=== PATIENT | female | born 1985 | race Caucasian/White ===

== ENCOUNTER → 2018-10-21 10:38 | Outpatient (CLI) | payer OTHER, SELFPAY ==
[2018-10-27 08:21] LABS: HPV HC, High Risk Positive (Negative)
[2018-10-27 08:22] LABS: Chlamydia By Nucleic Acid AMP Negative; Gonococcus By Nucleic Acid AMP Negative
== END ==
PROVIDERS: Family Provider Family Medicine; PCP Family Medicine; Referring Provider Family Medicine; Visit Provider Family Medicine
DX: Z87.42 Personal history of other diseases of the female genital tract (principal)
CPT/HCPCS: 87491; 87591; 87623; 87624; 88175; G0145

== ENCOUNTER → 2019-02-02 | Outpatient (CLI) | payer BC, SELFPAY ==
--- NOTE | 2019-02-02 | IMM_PTH ---
PATIENT: INA THACKER LOC: [facility] U#:[id number] AGE/SX: 34/F ROOM: RE02/02/[address]: Dr. Lanette Garza MD : 1985 BED: DIS: 02/02/2019 SPEC #: [id number] RECD: 02/03/19 13:36 STATUS: CARSON RETootie #: [id number] CRISTHIAN: 02/02/19 00:[address]: Lanette Garza DEPT: IMMUNOHISTOCHEMISTRY RECD BY: Rosa Templeton ENTERED: 02/03/19 13:37 SP TYPE: IMMUNO OTHR DR: Dr. Patrick Garcia MD Tissues: B - Uterine cervix, NOS Procedures: P16 (add) KI-67 (initial) PHYSICIAN & [place] [id number] SPECIMEN INFORMATION: Tissue Source: B - Cervical biopsy Clinical Info: TAMMY III Specimen Number: [id number] CPT code: 31666, 39802 METHODOLOGY: Deparaffinized sections of prefer/formalin-fixed tissue or PAP/DQ stained slides are incubated with monoclonal/polyclonal antibodies/oligonucleotide probes. Localization is made via biotin free immunoperoxidase method. Appropriate controls are performed and reacted as expected. Results on target cell population are indicated in the following table: RESULTS: ANTIBODY / CLONE RESULT Block B P16 (E6H4) positive Ki-67 (30-9) strongly positive (>90% of dysplastic squamous cells) These tests were developed and their performance characteristics determined by [facility]. They may not have been cleared or approved by the U.S. Food and Drug Administration. The FDA has determined that such clearance or approval is not necessary. INTERPRETATION: B. Cervical biopsy: Moderately to severe squamous dysplasia. CE:yumi 02/03/19
--- NOTE | 2019-02-02 | CER_PTH ---
PATIENT: INA THACKER [facility]#:[id number] AGE/SX: 34/F ROOM: RE02/02/[address]: Dr. Lanette Garza MD : 1985 BED: DIS: 02/02/2019 SPEC #: [id number] RECD: 02/02/19 12:38 STATUS: CARSON GARLAND #: [id number] CRISTHIAN: 02/02/19 00:[address]: Lanette Garza DEPT: SURGICAL PATHOLOGY RECD BY: J Luis Patel ENTERED: 02/02/19 13:29 SP TYPE: CERV OTHR DR: Dr. Patrick Garcia MD Tissues: A - Endocervical B - Uterine cervix, NOS Procedures: Surgery Specimen Level IV HEADER OPERATION: Colposcopy PRE-OP DIAGNOSIS: TAMMY III TISSUE SUBMITTED: A - ECC, B - Cervical MICROSCOPIC DIAGNOSIS A. Endocervical curettage: Scant endocervical epithelium present. No metaplastic or dysplastic squamous epithelium found. B. Cervical biopsy: Moderate to severe squamous dysplasia (TAMMY II-III) with endocervical gland neck extension. 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 CE:yumi 02/03/19 COMMENT B. Results from immunohistochemistry ([id number]) for surrogate HPV marker (p16) and Ki 67 will be reported separately. Case has been reviewed in consultation with Dr. Rogers who concurs with the above diagnosis. IDC:SANCHEZ MICROSCOPIC DESCRIPTION Slides are reviewed. GROSS DESCRIPTION A - Received in fixative is one container labeled with the patient's name and designated ECC. The specimen consists of scant fragments of mucoid tissue, entirely submitted for cell block preparation. B - Received in fixative is one container labeled with the patient's name and designated cervical biopsy. The specimen consists of multiple irregular fragments of light lui soft tissue that in aggregate measure 0.4 x 0.3 x 0.1 cm. The specimen is totally submitted in one cassette. / SANCHEZ:yumi 02/02/19 TC: CPT:
[2019-02-02 11:47] VITALS: BMI 19.5
== END | disposition home or self-care (01) ==
LOC: LABSPEC 13:17
PROVIDERS: Family Provider Family Medicine; PCP Family Medicine; Referring Provider Obstetrics & Gynecology; Visit Provider Obstetrics & Gynecology
DX: D06.9 Carcinoma in situ of cervix, unspecified (principal)
CPT/HCPCS: 88305; 88341; 88342

== ENCOUNTER → 2019-03-22 | Outpatient (CLI) | payer OTHER, SELFPAY ==
[2019-02-02 11:47] VITALS: BMI 19.5
[2019-03-11 11:13] VITALS: BMI 19.5
--- NOTE | 2019-03-13 06:08 | PCM.HPOB.BLA ---
- Problem List (1) TAMMY III (cervical intraepithelial neoplasia grade III) with severe dysplasia Status: Acute Comment: plan LEEP (2) IUD contraception Status: Acute Comment: plan IUD removal and reinsertion History and Physical Date of Admission: 03/17/19 Intake Vital Signs 03/11/19 Body Mass Index (BMI) 19.5 03/11/19 Height 5 ft 9 in 03/11/19 Weight: 129 lb 03/11/19 Body Mass Index (BMI) 19.0 03/11/19 Blood Pressure 100/72 Intake Visit Reasons: pre op LEEP/IUD Chief Complaint: pre op Gear Technician Required: No Is patient in pain?: No Allergies amoxicillin Allergy (Mild, Verified 03/11/19 10:58) other erythromycin base Allergy (Mild, Verified 03/11/19 10:58) other acetaminophen [From Tylenol-Codeine #3] Allergy (Verified 03/11/19 10:58) Rash codeine [From Tylenol-Codeine #3] Allergy (Verified 03/11/19 10:58) Rash Medications bupropion HCl XL 150 mg 24 hr tablet, extended release 150 mg PO DAILY 02/02/19 [History Confirmed 03/10/19] cetirizine 10 mg tablet 10 mg PO DAILY 02/02/19 [History Confirmed 03/10/19] Is last menstrual period known: No Post menopausal: No Patient : No : [facility] Medical History Anxiety (Acute) Depression (Acute) Surgical History History of laparoscopy (Acute) Family History Grandmother Heart disease Breast cancer Grandfather Heart disease Social History Smoking Status: Current some day smoker Smokeless tobacco user: dissolvable tobacco alcohol intake: current details: social substance use type: does not use caffeine: Yes what type of physical activity do you participate in: walking seatbelt use: always do you feel safe at home: Yes additional social history: Pranay Coffman LPN 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 she needs her IUD replaced and she has TAMMY III Pregancy History 1 Elective abortions Hx Para 1 Spontaneous abortions Hx # Term Pregnancies Ectopic pregnancies Hx # Pregnancies Multiple births # of living children Past Pregnancies Del. Date Name GA/Weeks Outcome Route Bth Weight [facility] Kota live - full term Raj ROS Const Constitutional: Denies fatigue, fever(s), headache(s), increased appetite, poor appetite, weight gain or weight loss Cardio Card: Denies chest pain Resp Resp: Denies cough or dyspnea GI GI: Reports as per HPI; denies abdominal pain, constipation, nausea or vomiting : Reports as per HPI; denies difficulty urinating, painful urination, nipple discharge, urinary frequency, urinary incontinence, urinary hesitancy, urinary urgency, vaginal discharge, vaginal dryness, vaginal odor or vaginal itching Skin Skin/Breast: Denies change in hair, breast lump, breast pain, breast skin changes or nipple discharge Exam Const General: cooperative, healthy appearing, comfortable, no acute distress, well developed Nutritional Appearance: average body habitus Orientation: alert HENMD Head: normal to inspection, normocephalic Neck Neck: normal visual inspection, trachea midline Thyroid: thyroid normal Resp Effort & Inspection: normal respiratory effort GI Inspection: normal to inspection, non-distended Palpation: soft, no hepatosplenomegaly General: bladder normal to palpation External Female Exam: normal external appearance, normal appearance of the urethra Urethra: normal appearance of the urethra, normal palpation, no discharge Speculum Exam - Vagina: normal appearance of the vagina, normal vaginal discharge Speculum Exam - Cervix: normal appearance of the cervix, nontender Bimanual Exam- Vagina & Uterus: normal bimanual exam, uterine size normal, bladder normal to palpation, uterine shape normal, No cervical tenderness, uterine mobility normal, uterine consistency normal, normal cervical palpation, uterus non-tender Bimanual Exam- Adnexa, other: normal adnexae, adnexae mobile, no adnexal masses, pelvic support normal Pelvic Support: normal Skin General: no rashes or lesions noted Assessment & Plan Problems 1. IUD contraception Z97.5 plan IUD removal and reinsertion 2. TAMMY III (cervical intraepithelial neoplasia grade III) with severe dysplasia D06.9 plan LEEP Plan see problem list details discussed surgical risks including risks of anesthesia, infection, bleeding, injury to bowel, bladder or blood vessels, and patient wishes to proceed with surgery. Coding Level of Care Code No Charge Diagnoses IUD contraception Z97.5 TAMMY III (cervical intraepithelial neoplasia grade III) with severe dysplasia D06.9 UPDATE- I have seen the patient and performed any clinically relevant updates to the history and physical exam. Lanette Garza MD
== END | disposition home or self-care (01) ==
PROVIDERS: Family Provider Family Medicine; PCP Family Medicine; Referring Provider Obstetrics & Gynecology; Visit Provider Obstetrics & Gynecology
DX: Z01.818 Encounter for other preprocedural examination (principal)

== ENCOUNTER 2019-05-12 05:52 | Day surgery (SDC) | payer OTHER, SELFPAY ==
[2019-03-11 11:13] VITALS: BMI 19.5
[2019-04-29 11:07] VITALS: BMI 19.5
[2019-05-12] VITALS (8 sets, daily range): BP systolic 116–129; BP diastolic 78–83; PULSE 60–78; RESP 16; TEMP 36.5–36.9; O2SAT 98–100; BMI 18.8
--- NOTE | 2019-05-12 | IMM_PTH ---
PATIENT: INA THACKER LOC: [facility] U#:[id number] AGE/SX: 34/F ROOM: RE05/12/[address]: Dr. Lanette Garza MD : 1985 BED: DIS: 05/12/2019 SPEC #: [id number] RECD: 05/13/19 10:32 STATUS: CARSON REQ #: [id number] CRISTHIAN: 05/12/19 00:[address]: Lanette Garza DEPT: IMMUNOHISTOCHEMISTRY RECD BY: Rosa Templeton ENTERED: 05/13/19 10:33 SP TYPE: IMMUNO OTHR DR: Dr. Patrick Garcia MD Tissues: A - Uterine cervix, NOS Procedures: p16 (initial) KI-67 (add) P16 (add) PHYSICIAN & INSTITUTION [place] [id number] SPECIMEN INFORMATION: Tissue Source: A - Cervix Clinical Info: TAMMY III with severe dysplasia Specimen Number: [id number] A1 & A4 CPT code: 14676, 70279 x3 METHODOLOGY: Deparaffinized sections of prefer/formalin-fixed tissue or PAP/DQ stained slides are incubated with monoclonal/polyclonal antibodies/oligonucleotide probes. Localization is made via biotin free immunoperoxidase method. Appropriate controls are performed and reacted as expected. Results on target cell population are indicated in the following table: RESULTS: ANTIBODY / CLONE RESULT Block A1 P16 (E6H4) positive, focal block-like Ki-67 (30-9) positive, high Block A4 P16 (E6H4) positive, block-like Ki-67 (30-9) positive, moderate These tests were developed and their performance characteristics determined by [facility]. They may not have been cleared or approved by the U.S. Food and Drug Administration. The FDA has determined that such clearance or approval is not necessary. INTERPRETATION: A. Cervix, LEEP conization: Moderate squamous dysplasia, TAMMY II (HGSIL). AM:yumi 05/13/19
--- NOTE | 2019-05-12 06:02 | PCM.HPOB.BLA ---
- Problem List (1) TAMMY III (cervical intraepithelial neoplasia grade III) with severe dysplasia Status: Acute Comment: plan LEEP (2) IUD contraception Status: Acute Comment: plan IUD removal and reinsertion History and Physical Date of Admission: 05/12/19 Intake Vital Signs 04/29/19 Body Mass Index (BMI) 19.5 04/29/19 Height 5 ft 9 in 04/29/19 Weight: 124 lb 04/29/19 Body Mass Index (BMI) 18.3 04/29/19 Blood Pressure 122/66 H Intake Visit Reasons: LEEP/IUD removal/insert Chief Complaint: Prep Op- LEEP, IUD removal and insertion Soil Conservation Aide Required: No Is patient in pain?: No Allergies amoxicillin Allergy (Mild, Verified 04/29/19 11:06) other erythromycin base Allergy (Mild, Verified 04/29/19 11:06) other acetaminophen [From Tylenol-Codeine #3] Allergy (Verified 04/29/19 11:06) Rash codeine [From Tylenol-Codeine #3] Allergy (Verified 04/29/19 11:06) Rash Medications bupropion HCl XL 150 mg 24 hr tablet, extended release 150 mg PO DAILY 02/02/19 [History Confirmed 04/29/19] cetirizine 10 mg tablet 10 mg PO DAILY 02/02/19 [History Confirmed 04/29/19] Is last menstrual period known: No Post menopausal: No Patient : No : No [facility] Medical History Anxiety (Acute) Depression (Acute) Surgical History History of laparoscopy (Acute) Family History Grandmother Heart disease Breast cancer Grandfather Heart disease Social History (Updated 05/01/19 @ 05:37 by Lanette Garza MD) Smoking Status: Current some day smoker Smokeless tobacco user: dissolvable tobacco alcohol intake: current details: social substance use type: does not use caffeine: Yes what type of physical activity do you participate in: walking seatbelt use: always do you feel safe at home: Yes additional social history: Pranay Coffman LPN 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 Female Reproductive History Menopausal Symptoms: No night sweats Pregancy History 1 Elective abortions Hx Para 1 Spontaneous abortions Hx # Term Pregnancies Ectopic pregnancies Hx # Pregnancies Multiple births # of living children Past Pregnancies Del. Date Name GA/Weeks Outcome Route Bth Weight Infant Gen Labor Lgth Anesthesia Del Locatn Provider FOB Unknown Kota live - full term Raj ROS Const Constitutional: Denies fatigue, night sweats, weight gain or weight loss ENT ENT: Reports system reviewed and no additional complaints, except as docu Cardio Card: Denies chest pain Resp Resp: Denies cough or dyspnea GI GI: Reports as per HPI; denies abdominal pain, constipation, nausea or vomiting : Denies nipple discharge, urinary frequency, urinary incontinence, urinary hesitancy, urinary urgency, vaginal discharge, vaginal dryness, vaginal odor or vaginal itching Musc Musc: Denies joint pain, back pain or muscle weakness Skin Skin/Breast: Denies hair loss, change in hair, dry skin, breast lump, breast pain, breast skin changes or nipple discharge Neuro Neuro: Reports system reviewed and no additional complaints, except as docu Psych Psych: Reports system reviewed and no additional complaints, except as docu Endo Endo: Denies cold intolerance, excessive sweating, heat intolerance or increased thirst Bryson/Lymph Hematologic/Lymphatic: Denies easy bleeding, Denies easy bruising, Denies enlarged lymph nodes Exam Const General: cooperative, healthy appearing, comfortable, no acute distress, well developed Orientation: alert [facility] Head: normal to inspection, normocephalic Ears: hearing grossly normal bilaterally, external ears normal Nose: external nose normal, nares normal Face and sinus: normal facial exam Neck Neck: normal visual inspection, no lymphadenopathy Thyroid: thyroid normal Chest Chest palpation & inspection: normal inspection of the chest Resp Effort & Inspection: normal respiratory effort Auscultation: clear to auscultation bilaterally Cardio Rate: regular rate Rhythm: regular rhythm Heart Sounds: S1 normal, S2 normal GI Inspection: normal to inspection, non-distended Palpation: soft, no hepatosplenomegaly Musc Other: gross motor intact no deficits, full bilateral strength Skin General: no rashes or lesions noted Neuro General: alert, awake, moves all extremities, no focal motor deficits Motor: muscle tone normal throughout Extrem General: normal to inspection, no pedal edema Psych Appearance: grossly normal Mental Status: mental status grossly normal Affect: normal affect Speech and Movement: speech and movement normal Assessment & Plan Problems 1. TAMMY III (cervical intraepithelial neoplasia grade III) with severe dysplasia D06.9 plan LEEP 2. IUD contraception Z97.5 plan IUD removal and reinsertion Plan plan LEEP discussed risk of bleeding infection scarring, risk of cervical insufficiency. Coding Level of Care Code No Charge Diagnoses TAMMY III (cervical intraepithelial neoplasia grade III) with severe dysplasia D06.9 IUD contraception Z97.5 .HP
[2019-05-12 06:26] LABS: Hematocrit 41.7 % (37-47); Hemoglobin 13.6 g/dL (12.0-15.0); Mean Corp Hgb Conc 32.6 g/dL (32-36); Mean Corpuscular Hgb 32.4 pg (27.0-32.0); Mean Corpuscular Volume 99.3 fL (81-99); Mean Platelet Vol. 10.2 fl (6.2-12.0); Platelet Count 198 K/mm3 (150-450); RBC Distribution Width CV 12.5 % (11.6-14.6); White Blood Count 7.1 K/mm3 (4.4-11.0)
[2019-05-12 07:15] LABS: Internal QC Validated? YES +Cl - CLEAR BKGD; Pregnancy, Serum, hCG Quali. NEGATIVE Negative
--- NOTE | 2019-05-12 07:30 | CONE_PTH ---
PATIENT: INA THACKER LOC: [facility] [place] U#:[id number] AGE/SX: 34/F ROOM: RE05/12/[address]: Dr. Lanette Garza MD : 1985 BED: DIS: 05/12/2019 SPEC #: [id number] RECD: 05/12/19 09:39 STATUS: CARSON GARLAND #: [id number] CRISTHIAN: 05/12/19 07:[address]: Lanette Garza DEPT: SURGICAL PATHOLOGY RECD BY: J Luis Patel ENTERED: 05/12/19 11:13 SP TYPE: Reji SAHA DR: Dr. Patrick Garcia MD Tissues: A - Uterine cervix, NOS B - Endocervical Procedures: Surgery Specimen Level IV Surgery Specimen Level V HEADER OPERATION: LEEP jacob, IUD change PRE-OP DIAGNOSIS: TAMMY III with severe dysplasia TISSUE SUBMITTED: A - Cervix, B - Endocervical curettings MICROSCOPIC DIAGNOSIS A. Cervix, LEEP conization: Focal moderate squamous dysplasia, TAMMY II (HSIL). Margins of excision are free of dysplasia. See comment. B. Endocervix, curettings: Rare strips of benign superficial endocervix. Rare fragments of benign superficial squamous mucosa. No evidence of dysplasia. AM:yumi 05/13/19 COMMENT A. Results from immunohistochemistry ([id number]) for surrogate HPV marker (p16) will be reported separately. Reference is made to the patient's previous cervical biopsy from 02/03/19 ([id number]) in which moderate to severe squamous dysplasia was identified. Case has been reviewed in consultation with Dr. Rogers who concurs with the above diagnosis. IDC:SJ MICROSCOPIC DESCRIPTION Slides are reviewed. GROSS DESCRIPTION A - Received in fixative is one container labeled with the patient's name and designated cervix. The specimen consists of a lui, indurated piece of tissue consistent with LEEP conization, previously opened measuring 2.5 x 2.5 cm and up to 1 cm in depth. Also present in the container are two detached pieces of lui, indurated tissue measuring in aggregate 1.5 x 1 x 0.2 cm. No mucosal lesion is identified. The nonmucosal surface is inked black. The largest piece is serially sectioned and the intermediate size piece is bisected. The entire specimen is submitted in five cassettes as follows: 1 - two smaller pieces, 25 - rest of the specimen with each cassette containing one quadrant. B - Received in fixative is one container labeled with the patient's name and designated endocervical curettings. The specimen consists of multiple fragments lui mucoid tissue that in aggregate measure 1 x 0.5 x 0.1 cm. The specimen is totally submitted in one cassette. / SJ:rg 05/12/19 TC:0 CPT: 21062, 65038
[2019-05-12] MEDS: FERRIC SUBSULFATE 8 GM SOLN (07:50)
--- NOTE | 2019-05-12 07:52 | PCM.OPRPT ---
Problem List (1) TAMMY III (cervical intraepithelial neoplasia grade III) with severe dysplasia Status: Acute Comment: plan LEEP (2) IUD contraception Status: Acute Comment: plan IUD removal and reinsertion Report of Operation Date of Procedure: 05/12/19 Pre-Operative Diagnosis: TAMMY III contraception Post-Operative Diagnosis: same Surgery/Procedure Performed:: mirena iud removal and reinsertion leep Description of Surgical Findings:: cervix nl gross appearance Type of Anesthesia:: Spinal Special Medications: monsels paste Specimen's removed: Cervix and ECC Drains: none Estimated Blood Loss (mL): 25 Fluids Replaced: crystalloid Description of Procedure: Patient was taken to the operating room and placed under MAC anesthesia. She was prepped and draped in normal sterile fashion in dorsal lithotomy position SCDs were on preoperatively. Letter drained of clear urine and paracervical block was placed with 1% lidocaine with epinephrine. IUD strings removed using a 2 cm electrode the cervix was removed anterior to posterior several additional pieces laterally and posteriorly to remove the affected areas as previously noted on colposcopy. Endocervical curettage was performed and specimen sent for pathology. Letter cautery was used to obtain excellent hemostasis of the base of the cervix and then the cervix was dilated to allow passage and placement of a Mirena IUD to 6 cm without difficulty was deployed and the strings trimmed to 3 4 cm from the cervical os Monsel's paste applied excellent hemostasis noted all instruments removed from the vagina patient was awoken and taken recovery in stable condition. Grafts/Implants Used: mirena iud - Complications none
--- NOTE | 2019-05-12 07:57 | DCINST_ITS ---
Discharge Diet: No Restrictions Discharge Activity: Return to Normal Activity, May not drive while taking narcotic pain medications. May resume sexual activity in: 4 weeks - Nothing in the vagina for 4 weeks Call your doctor if you observe: Fever of 101 or Higher, Using more than one pad per hour Allergies/Adverse Reactions: Allergies amoxicillin Allergy (Mild, Verified 05/11/19 15:22) other erythromycin base Allergy (Mild, Verified 05/11/19 15:22) other acetaminophen [From Tylenol-Codeine #3] Allergy (Verified 05/11/19 15:22) Rash codeine [From Tylenol-Codeine #3] Allergy (Verified 05/11/19 15:22) Rash Medications to take at Discharge bupropion HCl XL 150 mg 24 hr tablet, extended release 150 mg PO DAILY 02/02/19 cetirizine 10 mg tablet 10 mg PO DAILY 02/02/19 Primary Care Physician: Patrick Garcia MD [Primary Care Provider] - Test Results: Test results from this visit will be discussed in further detail at your follow- up appointment, if applicable. Please Follow Up With: Lanette Garza MD - [phone]
== END 2019-05-12 09:24 | disposition home or self-care (01) ==
LOC: SDC 05:52 → AC 05:53
PROVIDERS: Family Provider Family Medicine; PCP Family Medicine; Referring Provider Obstetrics & Gynecology; Visit Provider Obstetrics & Gynecology
PROC: 0UBC7ZZ Excision of Cervix, Via Natural or Artificial Opening (ICD-10-PCS; CPT 57522; principal; 2019-05-12 07:15)
DX: N87.1 Moderate cervical dysplasia (principal); Z30.433 Encounter for removal and reinsertion of intrauterine contraceptive device; F32.9 Major depressive disorder, single episode, unspecified; F41.9 Anxiety disorder, unspecified; Z79.899 Other long term (current) drug therapy; F17.200 Nicotine dependence, unspecified, uncomplicated
CPT/HCPCS: 57522; 58300; 58301; 84703; 85027; 86850; 86900; 86901; 88305; 88307; 88341; 88342; J7120

== ENCOUNTER → 2020-08-02 11:09 | Outpatient (CLI) | payer OTHER, SELFPAY ==
[2019-06-01 11:42] VITALS: BMI 18.8
[2020-08-02 11:20] LABS: Bacteria 0 SEEN /hpf (None Seen); Mucous, Urine 0 SEEN /hpf (<or=2+); Red Blood Cells-Urine 0 SEEN /hpf (0-5); Squamous Epithelial Cells - UA 0 SEEN /hpf (5-10); White Blood Cells 0 SEEN /hpf (0-5)
[2020-08-02 15:31] LABS: Color, Urine Yellow (Yellow); Glucose, Dipstick Normal (Normal); Ketone-Dipstick Negative (Negative); Leukocyte Esterase-Dipstick Negative /ul (Negative); Nitrite-Dipstick Negative (Negative); Occult Blood-Urine Negative /ul (Negative); Protein-Dipstick Negative (Negative); Urine Bilirubin Dipstick Negative (Negative); Urine Clarity Sl. Cloudy (Clear); Urine Urobilinogen Normal (Normal)
[2020-08-02 16:23] LABS: Cholesterol 168 mg/dL (200); High Density Lipoprotein 74 mg/dL
[2020-08-02 16:38] LABS: HIV - WCH Non-Reactive (Nonreactive)
[2020-08-02 20:03] LABS: Chlamydia Trachomatis by PCR Negative (Negative); Neisserai gonorrhoeae by PCR Negative (Negative); Probe Check PASS; Sample Adequacy Control PASS; Specimen Processing Control PASS
[2020-08-09 01:20] LABS: Rapid Plasmin Reagin (RPR) NONREACTIVE (NONREACTIVE)
== END ==
PROVIDERS: PCP Family Medicine; Referring Provider Family Medicine; Visit Provider Family Medicine
DX: B99.9 Unspecified infectious disease (principal); Z13.220 Encounter for screening for lipoid disorders
CPT/HCPCS: 36415; 81001; 82465; 83718; 86592; 86703; 87491; 87591

== ENCOUNTER → 2020-09-03 | Outpatient (CLI) | payer OTHER, SELFPAY ==
[2019-06-01 11:42] VITALS: BMI 18.8
== END | disposition home or self-care (01) ==
PROVIDERS: PCP Family Medicine; Referring Provider Family Medicine; Visit Provider Family Medicine
DX: U07.1 COVID-19 (principal)
CPT/HCPCS: 87635; U0003

== ENCOUNTER 2020-09-21 17:40 | Emergency (ER) | payer OTHER, MEDICAID, SELFPAY ==
[2019-06-01 11:42] VITALS: BMI 18.8
[2020-09-21 17:40] VITALS: BP 148/94; PULSE 98; RESP 16; TEMP 36.6; O2SAT 99; BMI 20.7
--- NOTE | 2020-09-21 17:53 | EKG12_ITS ---
Test Reason : CP Blood Pressure : / mmHG Vent. Rate : 087 BPM Atrial Rate : 087 BPM P-R Int : 134 ms QRS Dur : 092 ms QT Int : 368 ms P-R-T Axes : 085 073 059 degrees QTc Int : 442 ms Normal sinus rhythm Normal ECG Confirmed by JAMA THOMPSON, CRISTEL ([id number]), assistant production editor ROGER DEAN ([id number]) on 09/27/2020 10:07:39 AM Referred By: SARITA Confirmed By:ALLI YUN MD
--- NOTE | 2020-09-21 17:54 | RAD_ITS ---
STUDY: X-RAY CHEST REASON FOR EXAM: Female, 35 years old. dyspnea TECHNIQUE: Single AP portable view of the chest. 2 images COMPARISON: None. FINDINGS: There is hyperinflation. There is no focal parenchymal abnormality. There is no demonstrated pleural abnormality. Normal size heart. Normal mediastinum and katy. Normal visualized pulmonary arteries. Normal visualized aortic arch and descending thoracic aorta. Normal visualized thoracic spine. Normal visualized ribs, clavicles, and shoulders. There is no demonstrated abnormality of the visualized soft tissue structures of the upper abdomen. RAD/Chest 1 View (Portable) IMPRESSION: Hyperinflation likely postobstructive. No pulmonary edema, congestive heart failure or confluent pneumonia. Electronically Signed: Faustina Donohue MD at 18:59 EST , Service support ,
--- NOTE | 2020-09-21 17:55 | ED.DCSUM_ITS ---
- ER Visit Summary Date of Service: 09/21/20 Chief Complaint: [Chest pain, shortness of breath, and paresthesias to her right ring finger and small finger] History of Present Illness: The patient is a 35 F [does the emergency department stating that she was having an argument with her fianc? 2 hours ago when she started having chest pain and feeling short of breath. Patient noticed paresthesias in her right ring finger and small finger. Patient is concerned because she had Covid 3 weeks ago and her [id number] who had Covid ended up having a stroke. Patient tells me that she has a history of anxiety and depression and has been under a lot more stress over the last week. Patient currently not taking anything for anxiety. She denies recent travel or surgery.] Physical Examination: [HEENT-PERRLA, EOMI. Cranial nerves II through XII grossly intact. TMs clear. Mucous membranes moist. No adenopathy. Cardiovascular-regular rate and rhythm without murmur or ectopy. No tenderness on palpation of the chest wall. Lungs-clear to auscultation, chest wall stable without crepitus or subcu emphysema Abdomen-normoactive bowel sounds, soft, nontender, no rebound or rigidity, no peritoneal signs. Neuro fnoj-qxusys-ynsv and heel galarza testing within normal limits, negative Romberg, negative for drift, fundi benign. NIH stroke scale was 0. Extremities-intact ?4, normal range of motion, normal pulses, atraumatic] Test Results: [EKG obtained on arrival showed a sinus rhythm with a ventricular rate of 87 bpm with no acute segment changes. Chest x-ray obtained read by myself is no evidence of infiltrate no evidence of pneumothorax or pneumomed iastinum. No acute disease on chest x-ray. Radiology interpretation pending. D-dimer obtained was normal at less than 0.27.] Emergency Department Course and Treatment: [IV line established on arrival patient was given Ativan 1 mg IV. She felt significantly improved after treatment. Her paresthesias in her right hand resolved.] Treatment Plan: [Patient I suspect likely having symptoms related to anxiety and I will write her prescription for as needed Ativan. Patient is advised to follow-up with her primary care physician within next 3 to 5 days.] Disposition: [Discharged home in stable condition] Impression: [Atypical chest pain Anxiety] This note was generated with [employer] software. It may contain incorrect words, spelling, and punctuation that were not noted in review of the chart prior to signing ED Disposition - Plan for ED Patient: Referrals: Patrick Garcia MD [Primary Care Provider] -
[2020-09-21] MEDS: LORazepam 2 MG/ML Syringe 1 MG IM (18:07)
[2020-09-21 18:36] LABS: D-Dimer Quantitative (DVT/PE) < 0.27 FEU/ug/m (0.27-0.49)
--- NOTE | 2020-09-21 18:59 | ED.DEP ---
ED Disposition - Plan for ED Patient: Instructions: ED Chest Pain, Uncertain Cause, ED Anxiety Reaction Prescriptions: Lorazepam [Ativan] 1 mg PO TID PRN #10 tab PRN Reason: Anxiety Prescription Printed Referrals: Patrick Garcia MD [Primary Care Provider] - 3-5 Days
[2020-09-21 19:22] VITALS: RESP 14
== END 2020-09-21 19:25 | disposition home or self-care (01) ==
LOC: ED 18:08
PROVIDERS: Emergency Provider Emergency Medicine; PCP Family Medicine
DX: R07.89 Other chest pain (principal); F41.9 Anxiety disorder, unspecified; R06.02 Shortness of breath; R20.2 Paresthesia of skin; F32.9 Major depressive disorder, single episode, unspecified; Z86.19 Personal history of other infectious and parasitic diseases; Z79.899 Other long term (current) drug therapy
CPT/HCPCS: 71045; 85379; 93005; 96372; 99282; A4216

== ENCOUNTER → 2021-07-08 16:22 | Outpatient (CLI) | payer MEDICAID, SELFPAY ==
[2021-07-08 18:10] LABS: ALB/GLOB Ratio 1.1 RATIO (0.9-2.4); AST(SGOT) 13 U/L (15-37); Alanine Aminotransfer ALT/SGPT 18 U/L (13-56); Albumin, Serum 3.9 g/dL (3.2-5.0); Alkaline Phosphatase 72 U/L (45-117); Anion Gap 7 (5-15); BUN 9 mg/dL (7-18); BUN/Creat Ratio 13.3 RATIO (10-20); Calcium,Total 8.7 mg/dL (8.5-10.1); Chloride 108 mmol/L (98-107); Creatinine, Serum 0.68 mg/dL (0.55-1.02); EST Glomerular Filtration Rate 106 mL/min (>60); Est Glom Filt Rate - Afr Amer 128 mL/min (>60); Globulin 3.4 g/dL (2.2-4.2); Glucose 95 mg/dL (74-106); Potassium 3.9 mmol/L (3.5-5.1); Protein, Total 7.3 g/dL (6.4-8.2); Sodium Level 140 mmol/L (136-145); Thyroid Stim Hormone (TSH) 1.24 uIU/mL (0.358-3.74)
== END ==
PROVIDERS: PCP Family Medicine; Visit Provider Family Medicine
DX: R39.15 Urgency of urination (principal)
CPT/HCPCS: 36415; 80053; 84443